=== PATIENT | female | born 1990 | race African-American/Black ===

== ENCOUNTER 2018-11-22 00:19 | Emergency (ER) | payer SELFPAY ==
[2018-11-22] MEDS ORDERED: AMOXicillin 250 MG CAP ONE (00:41)
== END 2018-11-22 00:53 | disposition home or self-care (01) ==
LOC: SCSER 00:19
DX: J36 Peritonsillar abscess (principal); E03.9 Hypothyroidism, unspecified; Z79.899 Other long term (current) drug therapy
CPT/HCPCS: 99283

== ENCOUNTER 2019-10-20 14:09 | Emergency (ER) | payer OTHER, SELFPAY | END 2019-10-20 15:15 | disposition home or self-care (01) | LOC: SCSER 14:09 | DX: J45.901 Unspecified asthma with (acute) exacerbation (principal); Z79.899 Other long term (current) drug therapy | CPT/HCPCS: 99284 ==

== ENCOUNTER 2022-12-15 15:22 | Emergency (ER) | payer OTHER ==
[2022-12-15 18:08] LABS: SARS-CoV-2 NAA Rapid Test DETECTED (NotDetected)
== END 2022-12-15 18:13 | disposition home or self-care (01) ==
LOC: ERS 15:22
DX: U07.1 COVID-19 (principal); I10 Essential (primary) hypertension; E03.9 Hypothyroidism, unspecified; Z20.822 Contact with and (suspected) exposure to COVID-19
CPT/HCPCS: 71045

== ENCOUNTER 2023-02-15 10:03 | Emergency (ER) | payer OTHER | END 2023-02-15 11:58 | disposition home or self-care (01) | LOC: ERS 10:03 | DX: S46.911A Strain of unspecified muscle, fascia and tendon at shoulder and upper arm level, right arm, initial encounter (principal); E03.9 Hypothyroidism, unspecified; I10 Essential (primary) hypertension; E66.9 Obesity, unspecified; W18.30XA Fall on same level, unspecified, initial encounter | CPT/HCPCS: 99283 ==

== ENCOUNTER 2023-07-26 00:36 | Emergency (ER) | payer SELFPAY ==
[2023-07-26] MEDS ORDERED: Ketorolac Tromethamine 30 MG/ML VIAL ONE (01:05)
[2023-07-26] MEDS ORDERED: Acetaminophen 500 MG TAB ONE (01:47)
== END 2023-07-26 01:26 | disposition home or self-care (01) ==
LOC: ERS 00:36
DX: M25.511 Pain in right shoulder (principal); E03.9 Hypothyroidism, unspecified; I10 Essential (primary) hypertension; E66.9 Obesity, unspecified
CPT/HCPCS: 96372; 99283; J1885

== ENCOUNTER 2023-11-24 19:22 | Emergency (ER) | payer SELFPAY ==
[2023-11-24] MEDS ORDERED: Albuterol 2.5 MG (0.5 mL) NEB ONE (20:20)
[2023-11-24] MEDS ORDERED: Ipratropium/Albuterol 3 ML NEB ONE (20:20)
== END 2023-11-24 21:18 | disposition home or self-care (01) ==
LOC: ERS 19:22
DX: J45.901 Unspecified asthma with (acute) exacerbation (principal); E03.9 Hypothyroidism, unspecified; I10 Essential (primary) hypertension; Z79.899 Other long term (current) drug therapy
CPT/HCPCS: 71045; 94640; J7611; J7620

== ENCOUNTER 2024-01-15 00:45 | Emergency (ER) | payer OTHER, SELFPAY ==
[2024-01-15 02:36] LABS: SARS-CoV-2 NAA Rapid Test Not Detected (NotDetected)
[2024-01-15 04:59] LABS: Bacteria/HPF None Seen HPF (None Seen); Bilirubin Negative (Negative); Blood, Urine Negative (Negative); CAUTI Indications for Culture Fever or rigors; Clarity Clear (Clear); Glucose, Urine (Dipstick) Normal (Negative); Ketone, Urine Negative (Negative); Leukocyte 25 Leu/uL (Negative); Nitrite Negative (Negative); Protein, Urine (Dipstick) Negative (Neg-Trace); RBC/HPF 0-3 HPF (0-3); Specific Gravity, Urine 1.016 (1.002-1.036); Urobilinogen Normal mg/dL (Less than 2); pH, Urine 5.5 (5.0-9.0)
[2024-01-15 05:06] LABS: Pregnancy Test - Urine (BHCG) Negative (Negative); Pregu Control Background? CLEAR/WHITE (CLR/WHITE); Pregu Control Bar Appear? YES (CONTROL BAR); Specific Gravity 1.016 (1.002-1.036)
[2024-01-15 05:08] LABS: Urine Culture Reflex No No
== END 2024-01-15 05:24 | disposition home or self-care (01) ==
LOC: ERS 00:45
DX: R19.7 Diarrhea, unspecified (principal); R11.10 Vomiting, unspecified; R05.9 Cough, unspecified; I10 Essential (primary) hypertension
CPT/HCPCS: 81001; 81025; 99284

== ENCOUNTER 2024-05-25 17:57 | Emergency (ER) | payer SELFPAY ==
[2024-05-25] MEDS ORDERED: Dexamethasone 10 MG/ML VIAL ONE (18:45)
[2024-05-25] MEDS ORDERED: fentaNYL 50 mcg/mL 1 mL Vial ONE (18:46)
[2024-05-25] MEDS ORDERED: Ketorolac Tromethamine 30 MG (1 mL) VIAL ONE (18:46)
== END 2024-05-25 19:55 | disposition home or self-care (01) ==
LOC: ERS 17:57
DX: M54.12 Radiculopathy, cervical region (principal); I10 Essential (primary) hypertension
CPT/HCPCS: 96372; 99282; J1100; J1885; J3010

== ENCOUNTER 2024-10-12 14:07 | Emergency (ER) | payer SELFPAY ==
[2024-10-12 15:13] LABS: Bacteria/HPF None Seen HPF (None Seen); Bilirubin Negative (Negative); Blood, Urine 3+ (Negative); CAUTI Indications for Culture Dysuria,urgency,freq; Glucose, Urine (Dipstick) Normal (Negative); Ketone, Urine Negative (Negative); Leukocyte 250 Leu/uL (Negative); Nitrite Negative (Negative); Protein, Urine (Dipstick) 30 mg/dL (Neg-Trace); RBC/HPF Greater than 50 HPF (0-3); Specific Gravity, Urine 1.011 (1.002-1.036); Squamous Epithelial 0-3 HPF (0-3); Urobilinogen Normal mg/dL (Less than 2); WBC/HPF Greater than 50 HPF (0-3); pH, Urine 5.5 (5.0-9.0)
[2024-10-12] MEDS ORDERED: Phenazopyridine HCl 100 MG TAB ONE (15:16)
[2024-10-12 15:23] LABS: Clarity Bloody (Clear)
[2024-10-12 15:25] LABS: Urine Culture Reflex Yes Yes
[2024-10-12 15:36] LABS: Pregnancy Test - Urine (BHCG) Negative (Negative); Pregu Control Background? CLEAR/WHITE (CLR/WHITE); Pregu Control Bar Appear? YES (CONTROL BAR); Specific Gravity 1.011 (1.002-1.036)
== END 2024-10-12 16:09 | disposition home or self-care (01) ==
LOC: ERS 14:07
DX: N39.0 Urinary tract infection, site not specified (principal); I10 Essential (primary) hypertension; E03.9 Hypothyroidism, unspecified; Z79.84 Long term (current) use of oral hypoglycemic drugs; Z79.890 Hormone replacement therapy
CPT/HCPCS: 81001; 81025; 87077; 87086; 87186; 99283